=== PATIENT | female | born 1955 | race Caucasian/White ===

== ENCOUNTER 2020-02-16 14:34 | Emergency (ER) | payer OTHER, SELFPAY ==
[2020-02-16] MEDS ORDERED: ETOMIDATE 20 MG/10 ML VIAL IV ONE (14:35)
[2020-02-16] MEDS ORDERED: RSI MEDICATION KIT IV ONE (14:51)
[2020-02-16 14:59] LABS: Absolute Lymphocytes (CBC) 6.7 K/uL (0.7-4.9); Basophils % 0.9 % (0-1.3); Hematocrit 8.2 % (36.0-45.0); Lymphocytes % 26.1 % (15.3-44.8); MPV 10.2 fL (7.6-11.3)
[2020-02-16 15:04] LABS: Protime INR 1.34
[2020-02-16 15:08] LABS: RBC Red Blood Cell Count 0.71 M/uL (3.86-4.86)
[2020-02-16 15:20] LABS: ALT/SGPT 9 U/L (12-78); AST/SGOT 10 U/L (15-37); Albumin 0.9 g/dL (3.4-5.0); Alkaline Phosphatase 35 U/L (45-117); Amylase 7 U/L (25-115); BUN Blood Urea Nitrogen 22 mg/dL (7-18); Bilirubin Direct < 0.1 mg/dL (0-0.2); CKMB Creatine Kinase MB < 1.0 ng/mL (0.3-3.6); Creatine Phosphokinase 13 U/L (26-192); Glucose Level 384 mg/dL (74-106); Lipase 70 U/L (73-393); Potassium 4.1 mmol/L (3.5-5.1); Protein, Total 2.6 g/dL (6.4-8.2); Sodium Level 135 mmol/L (136-145); Troponin (Emerg Dept Use Only) 0.03 ng/mL (0.0-0.045)
[2020-02-16 15:23] LABS: Bilirubin Total < 0.1 mg/dL (0.2-1.0)
[2020-02-16] MEDS ORDERED: propofoL 1,000 MG/100 ML VIAL IV ONE ×2 (15:23→19:41)
[2020-02-16 15:26] LABS: Bicarbonate 10 mmol/L (21-32)
[2020-02-16] MEDS ORDERED: NA CHLORIDE 0.9% 500 ML ONE (15:37)
--- NOTE | 2020-02-16 15:40 | RAD REPORT ---
EXAM DESCRIPTION: RAD - Chest Single View - 02/16/2020 3:32 pm CLINICAL HISTORY: discretion Chest pain. COMPARISON: CHEST PA AND LAT 2 VIEW dated 10/16/2010 FINDINGS: Portable technique limits examination quality. Tip of the endotracheal tube is above the cindy. The lungs appear grossly clear. The heart is normal in size. No displaced fractures.
[2020-02-16] MEDS ORDERED: VANCOMYCIN 1 GM/VIAL ONE (15:49)
[2020-02-16] MEDS ORDERED: NA CHLORIDE 0.9% 250 ML ONE (15:49)
[2020-02-16] MEDS ORDERED: PANTOPRAZOLE 40 MG INJ ONE (16:10)
[2020-02-16] MEDS ORDERED: VECURONIUM 10 MG/VIAL IV ONE (16:23)
[2020-02-16] MEDS ORDERED: FENTANYL CITR 100 MCG/2 ML ONE (16:24)
[2020-02-16 16:29] LABS: Urine Blood TRACE (NEG); Urine Glucose 3+ (NEG); Urine Protein TRACE (NEG); Urine pH 5.5 (5.0-7.0)
[2020-02-16 16:45] LABS: Arterial Blood Carboxyhemoglob 1.1 % (0-1.5); Blood Gas Oxyhemoglobin 97.8 % (94-97); Blood O2 Saturation 99.9 % (92-98.5)
[2020-02-16] MEDS ORDERED: OCTREOTIDE ACETATE 100 MCG/ML IV ONE (17:00)
[2020-02-16] MEDS ORDERED: PANTOPRAZOLE INJ 80 MG in NA CHLORIDE 0.9% 250 ML IV SCH (17:00)
[2020-02-16] MEDS ORDERED: D5W 1,000 ML with NA BICARB 8.4% 100 MEQ IV SCH ×2 (17:00)
[2020-02-16] MEDS ORDERED: OCTREOTIDE 500 MCG in NA CHLORIDE 0.9% 500 ML IV SCH (17:00)
[2020-02-16 17:07] LABS: Urine Bacteria >50 /HPF (<20); Urine Culture Reflex Order REFLEXED; Urine Mucus 1+ /HPF (NONE SEEN); Urine RBC <5 /HPF (NONE SEEN)
[2020-02-16 18:44] LABS: Hematocrit 43.3 % (36.0-45.0)
--- NOTE | 2020-02-16 19:11 | EDPHYS ---
Physician Documentation [facility] Name: Amalia Reeves Age: 64 yrs Sex: Female : 1955 Arrival Date: 02/16/2020 Time: 14:41 Bed 2 Private MD: ED Physician Roldan Gould HPI: 02/15 15:44 This 64 yrs old Female presents to ER via EMS with complaints of Altered kdr Mental Status, Unresponsive. 15:44 The patient presents with confusion, decreased mental status, decreased responsiveness. kdr Onset: The symptoms/episode began/occurred gradually, 3 week(s) ago. Possible causes: sepsis, Pt with n/v/d for three weeks steadily getting worse. Today, she became confused and had decreased responsiveness and EMS was called. When the arrived, the patient was talking to them but she was hypotensive with SBP in the 70's. They gave two liters of fluid and she seemed to be doing better. Upon arrival to the ED, she became unresponsive and she had lateral gaze to the right with labored breathing . Associated signs and symptoms: Pertinent positives: confusion, diarrhea, nausea, vomiting, weakness. Current symptoms: In the emergency department the patient's symptoms are unchanged from the initial presentation, despite EMS interventions. Patient's baseline: Neuro: alert and fully oriented, Motor: no deficits, Ambulation:. It is unknown whether or not the patient has had similar symptoms in the past. It is unknown whether or not the patient has recently seen a physician. Historical: - Allergies: 18:38 No Known Allergies; jl7 - Home Meds: 18:38 None [Active]; jl7 - PMHx: 18:38 None; jl7 - PSHx: 18:38 None; jl7 - Immunization history:: Adult Immunizations unknown. - Social history:: Smoking status: Patient reports the use of cigarette tobacco products, smokes one-half pack cigarettes per day, Patient uses alcohol, on a daily basis. "Couple glasses wine per night.". ROS: 15:44 Constitutional: Negative for fever, chills, and weight loss - obtained from kdr Eyes: Negative for injury, pain, redness, and discharge, Neck: Negative for injury, pain, and swelling, Cardiovascular: Negative for chest pain, palpitations, and edema, Respiratory: Negative for shortness of breath, cough, wheezing, and pleuritic chest pain, Abdomen/GI: Negative for abdominal pain, nausea, vomiting, diarrhea, and constipation, Back: Negative for injury and pain, MS/Extremity: Negative for injury and deformity, Skin: Negative for injury, rash, and discoloration, Allergy/Immunology: Negative for hives, rash, and allergies. Exam: 17:38 Constitutional: This is a well developed, well nourished patient who is unresponsive kdr and in severe distress. 17:38 ECG was reviewed by the Attending Physician. Vital Signs: 14:37 BP 116 / 262; Pulse 107; Resp 27; Pulse Ox 88% ; jl7 14:47 BP 76 / 42; Pulse 118; Resp 20 A; Pulse Ox 100% on ETT ambu; iw 14:55 BP 153 / 70; Pulse 113; Resp 16 A; Temp 97.7(R); Pulse Ox 98% on ETT vent; iw 15:28 BP 97 / 76; Pulse 111; Resp 20 A; Pulse Ox 100% on ETT vent; iw 15:31 Weight 65 kg (R); iw 16:00 BP 134 / 73; Pulse 102; Resp 26; Temp 95.7; Pulse Ox 100% ; jl7 16:30 BP 108 / 75; Pulse 99; Resp 15; Temp 95.6; Pulse Ox 100% ; jl7 17:00 BP 114 / 70; Pulse 91; Resp 14; Temp 95.7; Pulse Ox 100% ; jl7 17:30 BP 115 / 76; Pulse 86; Resp 19; Temp 96.0; Pulse Ox 100% ; jl7 18:23 BP 116 / 81; Pulse 78; Resp 15 A; Temp 96.4(C); Pulse Ox 100% on ETT vent; iw 18:44 BP 116 / 79; Pulse 79; Resp 14; Temp 96.8; Pulse Ox 100% ; jl7 Ventilator: 14:47 Fi02: 40%; Rate: 12min; T.V.: 500ml; Peep: 5cm; ET tube: 7 mm; jl7 MDM: 19:10 Patient medically screened. kdr 19:15 Data reviewed: vital signs, nurses notes, lab test result(s), radiologic studies. kdr Counseling: I had a detailed discussion with the patient and/or guardian regarding: the historical points, exam findings, and any diagnostic results supporting the discharge/admit diagnosis, lab results, radiology results, the need to transfer to another facility. 02/15 14:42 Order name: Amylase, Serum; Complete Time: 15:42 02/15 14:42 Order name: Basic Metabolic Panel; Complete Time: 15:42 02/15 14:42 Order name: Blood Culture Adult (2) 02/15 14:42 Order name: CBC with Diff 02/15 14:42 Order name: Ckmb; Complete Time: 15:42 02/15 14:42 Order name: CPK; Complete Time: 15:42 02/15 14:42 Order name: Lactate; Complete Time: 15:42 02/15 14:42 Order name: LFT's; Complete Time: 15:42 02/15 14:42 Order name: Lipase; Complete Time: 15:42 02/15 14:42 Order name: Procalcitonin; Complete Time: 17:51 02/15 14:42 Order name: Protime (+inr); Complete Time: 15:42 02/15 14:42 Order name: Ptt, Activated; Complete Time: 15:42 02/15 14:42 Order name: Troponin (emerg Dept Use Only); Complete Time: 15:42 02/15 14:42 Order name: Urine Microscopic Only; Complete Time: 17:51 02/15 14:47 Order name: Type And Screen [facility] 02/15 14:48 Order name: Flu; Complete Time: 17:51 [facility] 02/15 15:00 Order name: glucometer results - FOR PT WITH NO ID; Complete Time: 08:58 [facility] 02/15 15:11 Order name: Packed RBC Leukored [facility] 02/15 15:11 Order name: RBC Leukoreduced (Pheresis 2) [facility] 02/15 15:40 Order name: ABO/RH no charge; Complete Time: 15:42 [facility] 02/15 15:55 Order name: ABG Arterial Blood Gas; Complete Time: 17:51 [facility] 02/15 16:22 Order name: Urine Dipstick--Ancillary (enter results); Complete Time: 17:51 em1 02/15 17:09 Order name: Urine Culture [facility] 02/15 17:14 Order name: SARS-COV-2 RT PCR; Complete Time: 17:51 [facility] 02/15 17:55 Order name: Hemoglobin; Complete Time: 08:58 7 02/15 14:42 Order name: Chest Single View XRAY; Complete Time: 15:42 02/15 14:42 Order name: Accucheck; Complete Time: 14:59 iw 02/15 14:42 Order name: Cardiac monitoring; Complete Time: 15:13 02/15 14:42 Order name: EKG - Nurse/Tech; Complete Time: 15:13 02/15 14:42 Order name: IV Saline Lock - Large Bore; Complete Time: 15:13 iw 02/15 14:42 Order name: Labs collected and sent; Complete Time: 15:13 02/15 14:42 Order name: O2 Per Protocol; Complete Time: 15:13 02/15 14:42 Order name: O2 Sat Monitoring; Complete Time: 15:13 02/15 14:42 Order name: Urine Dipstick-Ancillary (obtain specimen); Complete Time: 16:21 02/15 17:55 Order name: Hematocrit; Complete Time: 08:58 7 02/15 18:52 Order name: Lactate Sepsis 2 HR Follow-up; Complete Time: 08:58 EDMS 02/15 18:57 Order name: Hemoglobin; Complete Time: 08:58 jl7 EC:38 Rate is 113 beats/min. Rhythm is regular, Sinus tachycardia with No ectopy. QRS [place] is kdr Normal. [place] interval is normal. QRS interval is normal. QT interval is normal. Clinical impression: NSR w/ Non-specific ST/T Changes and Sinus tachycardia. Administered Medications: 14:40 Drug: NS 0.9% (30 ml/kg) 30 ml/kg Route: IV; Rate: bolus; Site: left antecubital; iw 17:00 Follow up: Response: No adverse reaction; IV Status: Completed infusion; IV Intake: jl7 2000ml 14:47 Drug: Etomidate 20 mg Route: IVP; Site: left antecubital; iw 18:33 Follow up: Response: No adverse reaction jl7 14:47 Drug: Succinylcholine 100 mg Route: IVP; Site: left antecubital; iw 18:33 Follow up: Response: No adverse reaction jl7 15:10 Drug: Propofol 5 mcg/kg/min Route: IV; Rate: calculated rate; Site: right femoral; iw 18:32 Follow up: Rate change 30 mcg/kg/min jl7 15:49 Drug: Cefepime 1 grams Route: IVPB; Rate: 200 ml/hr; Infused Over: 30 mins; Site: left iw wrist; 16:20 Follow up: Response: No adverse reaction; IV Status: Completed infusion jl7 15:49 Drug: vancoMYCIN 1 grams Route: IVPB; Infused Over: 2 hrs; Site: right antecubital; iw 17:49 Follow up: Response: No adverse reaction; IV Status: Completed infusion jl7 15:57 Drug: ProTONIX 40 mg Route: IVP; Site: right femoral; iw 18:21 Follow up: Response: No adverse reaction jl7 16:23 Drug: fentaNYL (PF) 50 mcg Route: IVP; Site: right femoral; aa5 18:32 Follow up: Response: No adverse reaction jl7 16:40 Drug: ProTONIX 8 mg/hr Route: IV; Rate: 25 ml/hr; Site: left antecubital; jl7 19:31 Follow up: IV Status: Infusion continued upon transfer jl7 17:30 Drug: Sodium Bicarbonate 1 amp Route: IVP; Site: right femoral; jl7 18:31 Follow up: Response: No adverse reaction jl7 19:31 Not Given (Other Intervention Used): VecuroNIUM 5 mg IVP once jl7 Disposition: 02/16/20 19:10 Transfer ordered to [facility]. Diagnosis is GI Bleed, AMS, Anemia. - Reason for transfer: Higher level of care. - Accepting physician is Ernesto/Mt. - Condition is Critical. - Problem is an ongoing problem. - Symptoms have improved. Signatures: Dispatcher [employer] EDMS Roldan Gould MD MD kdr Williams, Irene, RN RN iw Cheryl Ramirez RN RN aa5 Corrie Clark RN RN jl7 Annalisa Regan RN RN ea Corrections: (The following items were deleted from the chart) 15:34 15:11 ABO/RH typing ordered. EDMS EDMS 15:34 15:11 Antibody Screen ordered. EDMS EDMS 15:37 15:11 PACKED RBC LEUKORED -1+BB.LAB.BRZ ordered. EDMS EDMS 16:02 14:48 CORONAVIRUS+MR.LAB.BRZ ordered. EDMS EDMS 19:42 19:10 02/16/2020 19:10 Transfer ordered to [facility]. ea Diagnosis is GI Bleed, AMS, Anemia. Reason for transfer: Higher level of care. Accepting physician is Ernesto/Mt. Condition is Critical. Problem is an ongoing problem. Symptoms have improved. kdr
--- NOTE | 2020-02-16 19:11 | ER ---
[facility] Name: Amalia Reeves Age: 64 yrs Sex: Female : 1955 Arrival Date: 02/16/2020 Time: 14:41 Bed 2 Private MD: Diagnosis: GI Bleed, AMS, Anemia Presentation: 02/15 14:44 Chief complaint: EMS states: not feeling well, increased weakness over past 2-3 weeks, iw today became lethargic, was hypotensive and tachycardic on scene, initial GCS was 15, is now only minimally responsive, breathing is shallow, weak, Rt called to bedside. 14:45 Method Of Arrival: EMS: [facility] iw 14:45 Coronavirus screen:. Ebola Screen: Patient negative for fever greater than or equal to iw 101.5 degrees Fahrenheit, and additional compatible Ebola Virus Disease symptoms Patient denies exposure to infectious person. Patient denies travel to an Ebola-affected area in the 21 days before illness onset. No symptoms or risks identified at this time. Initial Sepsis Screen: Does the patient meet any 2 criteria? RR > 20 per min. Systolic BP < 90 mmHg. Altered Mental Status. HR > 90 bpm. Does the patient have a suspected source of infection? No. Patient's initial sepsis screen is negative. Risk Assessment: Do you want to hurt yourself or someone else? Unable to obtain. 14:45 Acuity: GRETEL 1 iw 14:45 Onset of symptoms was February 04, 2020. Care prior to arrival: Medication(s) given: iw Normal saline infusion, 1000 mL, IV initiated. 18 GA, in the right antecubital area, Oxygen administered. via nasal cannula. Historical: - Allergies: 18:38 No Known Allergies; jl7 - Home Meds: 18:38 None [Active]; jl7 - PMHx: 18:38 None; jl7 - PSHx: 18:38 None; jl7 - Immunization history:: Adult Immunizations unknown. - Social history:: Smoking status: Patient reports the use of cigarette tobacco products, smokes one-half pack cigarettes per day, Patient uses alcohol, on a daily basis. "Couple glasses wine per night.". Screenin:30 Abuse screen: Denies threats or abuse. Denies injuries from another. Nutritional iw screening: No deficits noted. Tuberculosis screening: No symptoms or risk factors identified. Fall Risk IV access (20 points). Assessment: 14:45 General: Appears ill, well developed, Behavior is listless. Pain: Unable to use pain iw scale. Patient appears. Neuro: Level of Consciousness is obtunded, Oriented to none. 14:45 Cardiovascular: Capillary refill is sluggish in bilateral fingers toes Rhythm is sinus iw tachycardia. Respiratory: Respiratory effort is labored, shallow, weak, Respiratory pattern is hypoventilation. GI: Abdomen is flat, non-distended. Derm: Skin is pale. 16:00 Reassessment: RBC unit # 1 started at 1530 and completed at 1600 (see blood transfusion aa5 record for more information and for VS), no adverse reaction noted, lungs CTA.. 16:00 Reassessment: RBC unit #2 started at 1555 and being monitored by Corrie Clark RN . aa5 17:30 Reassessment: RBC unit #3 started at 1630, completed at 1730, no adverse reactions, see [facility] blood transfusion record for more information and VS. 18:13 Reassessment: RBC unit #4 started at 1705, completed at 1813, no adverse reactions, see [facility] blood transfusion record for more information and VS. 19:31 Reassessment: report given to TATIANA Martins at [facility]. iw Vital Signs: 14:37 BP 116 / 262; Pulse 107; Resp 27; Pulse Ox 88% ; jl7 14:47 BP 76 / 42; Pulse 118; Resp 20 A; Pulse Ox 100% on ETT ambu; iw 14:55 BP 153 / 70; Pulse 113; Resp 16 A; Temp 97.7(R); Pulse Ox 98% on ETT vent; iw 15:28 BP 97 / 76; Pulse 111; Resp 20 A; Pulse Ox 100% on ETT vent; iw 15:31 Weight 65 kg (R); iw 16:00 BP 134 / 73; Pulse 102; Resp 26; Temp 95.7; Pulse Ox 100% ; jl7 16:30 BP 108 / 75; Pulse 99; Resp 15; Temp 95.6; Pulse Ox 100% ; jl7 17:00 BP 114 / 70; Pulse 91; Resp 14; Temp 95.7; Pulse Ox 100% ; jl7 17:30 BP 115 / 76; Pulse 86; Resp 19; Temp 96.0; Pulse Ox 100% ; jl7 18:23 BP 116 / 81; Pulse 78; Resp 15 A; Temp 96.4(C); Pulse Ox 100% on ETT vent; iw 18:44 BP 116 / 79; Pulse 79; Resp 14; Temp 96.8; Pulse Ox 100% ; jl7 ED Course: 14:40 Patient has correct armband on for positive identification. Placed in gown. Bed in low jl7 position. Call light in reach. Side rails up X2. environmental monitoring specialist on. Pulse ox on. NIBP on. Warm blanket given. 14:41 Patient arrived in ED. iw 14:45 Second set of blood cultures drawn by physician. aa5 14:47 Assisted provider with intubation using 7.0 mm ETT via oral route. Set up intubation iw tray. Intubated by Roldan Gould MD Placement verified by CO2 detector w/ + color change, auscultating bilateral breath sounds, Patient tolerated well. 14:57 Triage completed. iw 14:57 Maintain EMS IV. Dressing intact. Good blood return noted. Site clean \\T\\ dry. Gauge \\T\\ iw site: 18 RAC. 14:57 Maintain EMS IV. Dressing intact. Good blood return noted. Site clean \\T\\ dry. Gauge \\T\\ iw site: 20 LAC. 15:09 Corrie Clark, TATIANA is Primary Nurse. jl7 15:09 Roldan Gould MD is Attending Physician. kdr 15:10 Second set of blood cultures drawn by me. Inserted saline lock: 20 gauge in left aa5 forearm, using aseptic technique. 15:10 Speci-cath kit inserted, using sterile technique, 16 Fr., specimen obtained. returned jl7 clear yellow urine. Patient tolerated pt sedated. 15:25 NGT: inserted 12 Fr. other OG verified placement of air over stomach, verified return jl7 of gastric contents, to intermittent suction. Returned bright red blood. Patient tolerated Pt sedated. 15:33 Chest Single View XRAY In Process Unspecified. EDMS 16:46 [facility] transfer center contacted to initiate transfer, spoke em1 with Loida. I was advised that she would work on finding an ICU bed for the pt. 17:24 [facility] transfer center called to follow up on initial call, i was advised that an ICU em1 bed was still being arranged. 17:47 [facility] transfer center called to ask for an extension and to advise us that transfer to em1 another facility might be a better idea. [facility] transfer center advised us that beds are scarce right now. 18:39 Patient transferred, IV remains in place. intact, No redness/swelling at site. jl7 18:39 One-on-one care X 340 minutes. jl7 19:31 Arm band placed on right wrist. jl7 Administered Medications: 14:40 Drug: NS 0.9% (30 ml/kg) 30 ml/kg Route: IV; Rate: bolus; Site: left antecubital; iw 17:00 Follow up: Response: No adverse reaction; IV Status: Completed infusion; IV Intake: jl7 2000ml 14:47 Drug: Etomidate 20 mg Route: IVP; Site: left antecubital; iw 18:33 Follow up: Response: No adverse reaction jl7 14:47 Drug: Succinylcholine 100 mg Route: IVP; Site: left antecubital; iw 18:33 Follow up: Response: No adverse reaction jl7 15:10 Drug: Propofol 5 mcg/kg/min Route: IV; Rate: calculated rate; Site: right femoral; iw 18:32 Follow up: Rate change 30 mcg/kg/min jl7 15:49 Drug: Cefepime 1 grams Route: IVPB; Rate: 200 ml/hr; Infused Over: 30 mins; Site: left iw wrist; 16:20 Follow up: Response: No adverse reaction; IV Status: Completed infusion jl7 15:49 Drug: vancoMYCIN 1 grams Route: IVPB; Infused Over: 2 hrs; Site: right antecubital; iw 17:49 Follow up: Response: No adverse reaction; IV Status: Completed infusion jl7 15:57 Drug: ProTONIX 40 mg Route: IVP; Site: right femoral; iw 18:21 Follow up: Response: No adverse reaction jl7 16:23 Drug: fentaNYL (PF) 50 mcg Route: IVP; Site: right femoral; aa5 18:32 Follow up: Response: No adverse reaction jl7 16:40 Drug: ProTONIX 8 mg/hr Route: IV; Rate: 25 ml/hr; Site: left antecubital; jl7 19:31 Follow up: IV Status: Infusion continued upon transfer jl7 17:30 Drug: Sodium Bicarbonate 1 amp Route: IVP; Site: right femoral; jl7 18:31 Follow up: Response: No adverse reaction jl7 19:31 Not Given (Other Intervention Used): VecuroNIUM 5 mg IVP once jl7 Medication: 17:47 Blood products: PRBCs X 4 units given. 7 Intake: 17:00 IV: 2000ml; Total: 2000ml. 7 Ventilator: 14:47 Fi02: 40%; Rate: 12min; T.V.: 500ml; Peep: 5cm; ET tube: 7 mm; jl7 Outcome: 19:10 ER care complete, transfer ordered by . kdr 19:30 Discharged to home jl7 19:30 Condition: stable 19:30 Transferred by helicopter to [facility], Transfer form completed. iw X-rays sent w/ patient. 19:42 Patient left the ED. ea Addendum: 02/22/2020 07:35 Addendum: Culture Results: Positive urine culture. Positive blood culture. Phone call s s Attempt #1 called and spoke to [facility] well drill operator rotary drill who states that patient has been discharged. Signatures: Dispatcher [employer] EDMS Roldan Gould MD MD kdr Williams, Irene, RN Vickey Chandler em1 Cheryl Ramirez, RN Nathalie Solorzano RN RN ss Leal, Jahala, RN RN jl7 Antunez, Elena, RN RN ea Corrections: (The following items were deleted from the chart) 02/15 15:30 14:45 Neuro: Level of Consciousness is obtunded, [facility] 18:40 14:40 One-on-one care X 340 minutes. jl7 jl7 18:58 16:46 [facility] transfer center contacted to initiate transfer, em1 spoke with Danielito. I was advised that she would work on finding an ICU bed for the pt. em1
[2020-02-16 20:09] VITALS: O2SAT 100
[2020-02-16 20:27] VITALS: BP 116/79; TEMP 96.8
--- NOTE | 2020-02-18 09:36 | EKG ---
Test Date: 2020-02-16 Test Time: 15:25:10 Manager Integrity: BASSAM MEASUREMENT RESULTS: Intervals: Rate: 113 ID: [id number] QRSD: 84 QT: 364 QTc: 499 [place]: P: 76 ID: [id number] QRS: 70 T: 60 INTERPRETIVE STATEMENTS: Sinus tachycardia Nonspecific ST and T wave abnormality Abnormal ECG Compared to ECG 10/16/2010 18:20:05 ST (T wave) deviation now present Sinus rhythm no longer present Electronically Signed On 02-18-20 09:31:24 CDT by Nahun Obrien
== END 2020-02-16 19:42 | disposition short-term general hospital (02) ==
LOC: ER 14:34
PROC: 30233N1 Transfusion of Nonautologous Red Blood Cells into Peripheral Vein, Percutaneous Approach (ICD-10-PCS; principal; 2020-02-16)
PROC: 0BH17EZ Insertion of Endotracheal Airway into Trachea, Via Natural or Artificial Opening (ICD-10-PCS; 2020-02-16)
PROC: 5A1935Z Respiratory Ventilation, Less than 24 Consecutive Hours (ICD-10-PCS; 2020-02-16)
DX: D64.9 Anemia, unspecified (principal); K92.2 Gastrointestinal hemorrhage, unspecified; Z20.828 Contact with and (suspected) exposure to other viral communicable diseases; F17.210 Nicotine dependence, cigarettes, uncomplicated
CPT/HCPCS: 31500; 36415; 36430; 71045; 80048; 80076; 81003; 81015; 82150; 82550; 82553; 82805; 82947; 83605; 83690; 84145; 84484; 85014; 85018; 85025; 85610; 85730; 86850; 86900; 86901; 87040; 87077; 87086; 87088; 87186; 87205; 87804; 93005; 94002; 99291; 99292; C9113; J2704; J3010; J3370; J7050; P9016; U0003